=== PATIENT | male | born 1950 | race Caucasian/White ===

== ENCOUNTER 2019-12-30 14:01 | Inpatient (IN) | payer MEDICARE ==
[~2019-12-30] VITALS: Ht 167.6 cm; Wt 75.9 kg
[~2019-12-30 14:01] MED LIST: AMA100C PO; ASPI-1 PO; CARB1TAB23 PO; CLOP75TA35 PO; DULA1.5P SQ; ENTA200T23 PO; FENO145T25 PO; FEXO1TAB8 PO; GABA600T13 PO; GLIM4TAB7 PO; GLUC100017 PO; KRIL500C PO; LEVO50TA8 PO; LOSA1TAB41 PO; METF500T20 PO; RASA1TAB PO; ROPI12TA2 PO; SAW450CA7 PO; UBID30CA11 PO; [UNRECOGNIZED DRUG - OTHER] PO; [UNRECOGNIZED DRUG - OTHER] PO; [UNRECOGNIZED DRUG - OTHER] PO
--- NOTE | 2019-12-30 14:08 | NUR ---
TEMP RECHECK 98.0, O2 SAT 96% WITH O2 AT 2LPM/NC. RR 24/MIN. EKG AT CHAIR SIDE.
[2019-12-30 14:59] LABS: BASOPHILS # (AUTO) 0.1 X10'3 (0-0.2); BASOPHILS % (AUTO) 0.6 % (0-1); EOSINOPHILS # (AUTO) 0.1 X10'3 (0-0.9); EOSINOPHILS % (AUTO) 0.9 % (0-6); HEMATOCRIT 25.5 % (42.0-52.0); HEMOGLOBIN 8.6 g/dl (14.0-17.9); LYMPHOCYTES # (AUTO) 0.8 X10'3 (1.1-4.8); LYMPHOCYTES % (AUTO) 8.5 % (21-51); MEAN CORPUSCULAR HEMOGLOBIN 28.2 PG (27.0-31.0); MEAN CORPUSCULAR HGB CONC 33.8 g/dL (33.0-36.5); MEAN CORPUSCULAR VOLUME 83.3 FL (78-98); MONOCYTES # (AUTO) 0.6 X10'3 (0-0.9); MONOCYTES % (AUTO) 5.7 % (2-12); NEUTROPHILS # (AUTO) 8.1 X10'3 (1.8-7.7); NEUTROPHILS % (AUTO) 84.3 % (42-75); PLATELET COUNT 337 X10'3 (140-440); RED BLOOD COUNT 3.06 X10'6 (4.70-6.10); RED CELL DISTRIBUTION WIDTH 15.1 % (11.5-14.5); WHITE BLOOD COUNT 9.7 X10'3 (4.5-11.0)
[2019-12-30 15:14] LABS: ALBUMIN/GLOBULIN RATIO 0.7 (1.1-1.5); ALKALINE PHOSPHATASE 91 IU/L (46-116); ANION GAP 11 (8-16); ASPARTATE AMINO TRANSFERASE 29 U/L (10-37); BILIRUBIN,TOTAL 0.7 MG/DL (0.1-1.0); BLOOD UREA NITROGEN 30 MG/DL (7-18); BUN/CREATININE RATIO 19.1 (5.4-32.0); CALCIUM 8.9 MG/DL (8.5-10.1); CHLORIDE 104 MMOL/L (99-107); CREATININE 1.57 MG/DL (0.60-1.10); GLUCOSE 223 MG/DL (70-104); POTASSIUM 3.7 MMOL/L (3.5-5.1); SODIUM 139 MMOL/L (135-145); TOTAL CARBON DIOXIDE 23.6 MMOL/L (24-32); TOTAL PROTEIN 7.5 G/DL (6.4-8.2); eGFR 44 ML/MIN
[2019-12-30] MEDS ORDERED: azithromycin/NS 500mg/250ml 250 ML IV ONE (15:15)
[2019-12-30] MEDS ORDERED: normal saline 1000ML IV soln IVB ONE ×2 (15:15→16:30)
[2019-12-30] MEDS ORDERED: levoFLOXACIN-Levaquin 750MG/D5 150 ML IV ONE (15:15)
[2019-12-30 15:32] LABS: ALANINE AMINOTRANSFERASE < 6 U/L (12-78)
--- NOTE | 2019-12-30 17:04 | NUR ---
DAUGHTERS: ALICIA BARRIENTOS [phone], ISABEL NUÑEZ [phone] (CALL FIRST, PERFORMANCE TEST ENGINEER)
[2019-12-30] MEDS ORDERED: FENO145T46 PO (17:25)
[2019-12-30] MEDS ORDERED: METF1000 PO (17:25)
[2019-12-30] MEDS ORDERED: BACL-11 PO (17:25)
[2019-12-30] MEDS ORDERED: DONE10TA7 PO (17:25)
[2019-12-30] MEDS ORDERED: ATOR10TA70 PO (17:25)
[2019-12-30] MEDS ORDERED: ASPI325T88 PO (17:26)
[2019-12-30] MEDS ORDERED: CLOP75TA15 PO (17:26)
[2019-12-30] MEDS ORDERED: DOXY100C2 PO (17:33)
[2019-12-30] MEDS ORDERED: ALBU18HF2 INH (17:33)
--- NOTE | 2019-12-30 17:38 | NUR ---
DAUGHTER ISABEL MAXIME LINE [phone]
--- NOTE | 2019-12-30 18:23 | NUR ---
TAX COMPLIANCE AGENT swab obtained at this time per PA order.
[2019-12-30] MEDS ORDERED: magnesium 2GM in 50ml NS 50 ML IV PRN (19:20)
[2019-12-30] MEDS ORDERED: acetaminophen 325mg tablet PO PRN (19:20)
[2019-12-30] MEDS ORDERED: dextrose ORAL solution 15 GM/59 ML bottle PO PRN ×2 (19:20)
[2019-12-30] MEDS ORDERED: hydrALAZINE 20mg/ml inj. IV PRN (19:20)
[2019-12-30] MEDS ORDERED: potassium CL 10mEq/100ml bag 100 ML IV PRN ×2 (19:20)
[2019-12-30] MEDS ORDERED: mag hydrox/Alum hydrox/simeth 30ml oral suspension PO PRN (19:20)
[2019-12-30] MEDS ORDERED: ondansetron/PF 4mg/2ml inj IV PRN (19:20)
[2019-12-30] MEDS ORDERED: bisacodyl 10mg suppository rectal RC PRN (19:20)
[2019-12-30] MEDS ORDERED: MESSAGE TO PHARMACY PO ONE (19:20)
[2019-12-30] MEDS ORDERED: dextrose 50%-water 50ml dispensing syringe IV PRN ×2 (19:20)
[2019-12-30] MEDS ORDERED: magnesium hydroxide 30ml (MOM) UD suspension PO PRN (19:20)
[2019-12-30] MEDS ORDERED: glucagon, human recombinant 1mg kit SUBCUT PRN (19:20)
[2019-12-30] MEDS ORDERED: HYDROcodone/acetaminophen 5mg/325mg tablet PO PRN (19:20)
[2019-12-30] MEDS ORDERED: magnesium Cl slow-release 64mg tablet PO PRN (19:20)
[2019-12-30] MEDS ORDERED: magnesium 4gm in 100ml NS 100 ML IV PRN (19:20)
[2019-12-30] MEDS ORDERED: potassium Cl 20 mEq SR tablet PO PRN ×2 (19:20)
[2019-12-30] MEDS ORDERED: furosemide 10 MG/1 ML 10ml inj IV ONE (19:30)
[2019-12-30 20:02] LABS: HEMOGLOBIN A1C 8.2 % (4.5-6.2)
[2019-12-30 21:00] VITALS: BP 138/70
[2019-12-30] MEDS: K and/or MAG REPLACEMENT MC SCH (21:00)
[2019-12-30] MEDS ORDERED: ROPINIROLE HCL 12 MG PO SCH (21:00)
[2019-12-30] MEDS ORDERED: donepezil 5mg tablet PO SCH (21:00)
[2019-12-30] MEDS ORDERED: insulin glargine (Lantus) pen - multi-dose SQ SCH (21:00)
[2019-12-30] MEDS ORDERED: baclofen 10mg tablet PO SCH (21:00)
[2019-12-30] MEDS ORDERED: gabapentin 300mg capsule PO SCH (21:00)
--- NOTE | 2019-12-30 21:00 | NUR ---
PT ARRIVED FROM ER. RECEIVED REPORT FROM MARGIE PATRICIA PRIOR TO PT'S ARRIVAL.
[2019-12-30] MEDS: normal saline 1000ml 1,000 ML IV SCH (21:30)
[2019-12-30] MEDS: carbidoba-levodopa 25-100mg tablet PO SCH (21:40)
[2019-12-30] MEDS: docusate sod 100mg capsule PO SCH (21:40)
[2019-12-30] MEDS: amantadine 100 MG capsule PO SCH (21:40)
--- NOTE | 2019-12-30 22:30 | NUR ---
PT BECOMES EXTREMELY SOB AND WHEEZY. O2 DESATS TO 84% WITH 5L OXYGEN. RR32. RT WAS CALLED BUT TX NOT NEEDED.
[2019-12-31 02:39] VITALS: BP 156/81
--- NOTE | 2019-12-31 04:48 | NUR ---
[address]O 69, HERE FOR PNEUMONIA R/O COVID. PT REFUSED 2100 DOSE BACLOFEN BUT WANTS TO TAKE IT NOW. CAN HE TAKE IT? THANK YOU. FROM #[id number] YA
[2019-12-31] MEDS ORDERED: baclofen 10mg tablet PO ONE (04:50)
[2019-12-31 05:56] LABS: BASOPHILS # (AUTO) 0.1 X10'3 (0-0.2); BASOPHILS % (AUTO) 1.1 % (0-1); EOSINOPHILS # (AUTO) 0.1 X10'3 (0-0.9); EOSINOPHILS % (AUTO) 0.8 % (0-6); HEMATOCRIT 26.6 % (42.0-52.0); LYMPHOCYTES # (AUTO) 0.9 X10'3 (1.1-4.8); LYMPHOCYTES % (AUTO) 10.6 % (21-51); MEAN CORPUSCULAR HEMOGLOBIN 28.2 PG (27.0-31.0); MEAN CORPUSCULAR HGB CONC 33.8 g/dL (33.0-36.5); MEAN CORPUSCULAR VOLUME 83.6 FL (78-98); MONOCYTES # (AUTO) 0.5 X10'3 (0-0.9); NEUTROPHILS # (AUTO) 7.3 X10'3 (1.8-7.7); NEUTROPHILS % (AUTO) 81.5 % (42-75); PLATELET COUNT 325 X10'3 (140-440); RED BLOOD COUNT 3.18 X10'6 (4.70-6.10); RED CELL DISTRIBUTION WIDTH 15.1 % (11.5-14.5); WHITE BLOOD COUNT 8.9 X10'3 (4.5-11.0)
[2019-12-31 06:07] VITALS: BP 150/79
--- NOTE | 2019-12-31 06:35 | NUR ---
Problems reprioritized. Patient report given, questions answered & plan of care reviewed with MARGIE VALLE.
--- NOTE | 2019-12-31 06:39 | NUR ---
Patient in room [facility]TH[facility] 4006. I have received report from MARGIE PANDYA and had the opportunity to ask questions and assume patient care.
--- NOTE | 2019-12-31 06:41 | NUR ---
Problems reprioritized. Patient report given, questions answered & plan of care reviewed with MARGIE PERALTA.
[2019-12-31 07:00] VITALS: BP 127/71
[2019-12-31] MEDS ORDERED: levoTHYROXINE 25mcg tablet PO SCH (07:00)
--- NOTE | 2019-12-31 07:00 | NUR ---
WENT IN TO PROVIDE AM MEDS AND PT HAD REMOVED TELE MONITOR, NC, AND IV LINE. PT WAS FULLY DRESSED AND WANTING TO LEAVE. I TALKED TO PT AND HE AGREED TO TAKE AM MEDS AND EAT BREAKFAST AND WILL WAIT FOR IV ABX TO FINISH BEFORE HE LEAVES. VS STABLE, WILL CONTINUE TO MONITOR.
[2019-12-31 07:30] LABS: ALANINE AMINOTRANSFERASE 7 U/L (12-78); ALBUMIN 2.8 G/DL (3.4-5.0); ALBUMIN/GLOBULIN RATIO 0.6 (1.1-1.5); ALKALINE PHOSPHATASE 76 IU/L (46-116); ANION GAP 9 (8-16); ASPARTATE AMINO TRANSFERASE 24 U/L (10-37); BILIRUBIN,TOTAL 0.6 MG/DL (0.1-1.0); BLOOD UREA NITROGEN 25 MG/DL (7-18); BUN/CREATININE RATIO 19.2 (5.4-32.0); CALCIUM 8.9 MG/DL (8.5-10.1); CHLORIDE 105 MMOL/L (99-107); CHOL/HDL RATIO 2.8 (0.00-4.99); CHOLESTEROL 99 MG/DL (0-200); GLUCOSE 177 MG/DL (70-104); HDL CHOLESTEROL 35 MG/DL (35-60); LDL CHOLESTEROL 55 MG/DL (50-100); MAGNESIUM 1.5 MG/DL (1.5-2.4); PHOSPHORUS 3.1 MG/DL (2.3-4.5); POTASSIUM 3.4 MMOL/L (3.5-5.1); SODIUM 140 MMOL/L (135-145); TOTAL CARBON DIOXIDE 26.5 MMOL/L (24-32); TOTAL PROTEIN 7.6 G/DL (6.4-8.2); TRIGLYCERIDES 57 MG/DL (20-135); eGFR 55 ML/MIN
[2019-12-31] MEDS: docusate sod 100mg capsule PO SCH (08:00)
[2019-12-31] MEDS ORDERED: HYDROchlorothiazide 12.5mg capsule PO SCH (08:00)
[2019-12-31] MEDS ORDERED: losartan 50mg tablet PO SCH (08:00)
[2019-12-31] MEDS ORDERED: atorvastatin 10mg tablet PO SCH (08:00)
[2019-12-31] MEDS ORDERED: clopidogrel 75mg tablet PO SCH (08:00)
[2019-12-31] MEDS ORDERED: CefTRIAXone/D5W-Rocephin 1gm 50 ML IV SCH (08:00)
[2019-12-31] MEDS ORDERED: enoxaparin 30mg/0.3ml syringe SQ SCH (08:00)
[2019-12-31] MEDS ORDERED: azithromycin/NS 500mg/250ml 250 ML IV SCH (08:00)
[2019-12-31] MEDS ORDERED: aspirin 325mg tablet, delayed-release (Ecotrin) PO SCH (08:00)
[2019-12-31] MEDS: K and/or MAG REPLACEMENT MC SCH (08:00)
[2019-12-31] MEDS: carbidoba-levodopa 25-100mg tablet PO SCH ×2 (09:52→14:04)
[2019-12-31] MEDS: amantadine 100 MG capsule PO SCH (09:53)
[2019-12-31] MEDS: insulin Lispro (HumaLOG) vial - multi-dose SQ SCH ×2 (10:06→14:02)
[2019-12-31] MEDS ORDERED: HYDROchlorothiazide tablet PO (12:14)
--- NOTE | 2019-12-31 12:31 | NUR ---
DM Consult: A1C 8.2. Pt admit w/ acute respiratory distress, PNA, and possible Covid-19 pending results. Hx CAD, DM, HTN. Pt is threatening to leave AMA and per EMR "He hates hospitals he hates doctors and nobody can hold him down this is against his rights." Pt is not currently appropriate for DM ed at this time. Written DM ed w/ RD contact information placed in pt chart. Addendum: 12/31/19 at [address] Amended: Links added.
[2019-12-31] MEDS: normal saline 1000ml 1,000 ML IV SCH ×2 (13:00→15:20)
[2019-12-31] MEDS ORDERED: LEVO500T2 PO (13:48)
--- NOTE | 2019-12-31 15:19 | NUR ---
Page Sent PAGER ID: [phone] MESSAGE: [id number] 5199-RE: PALMIRA AZEVEDO [id number]...NEGATIVE COVID RESULTS...PT WANTS TO BE DISCHARGED.
--- NOTE | 2019-12-31 16:28 | NUR ---
DC INSTRUCTIONS GIVEN TO PT, PT UNDERSTANDS. RX CALLED IN TO [facility]. IV DC'D, NO COMPLICATIONS. PT WHEELED DOWN TO DAUGHTER IN STABLE CONDITION.
[2019-12-31] MEDS ORDERED: lactobacillus rhamnosus 10,000 MMU CELLS/CAPSULE PO SCH (20:00)
== END 2019-12-31 16:00 | disposition home or self-care (01) | DRG 190 ==
LOC: ER 14:01 → ED HOLD 19:20 → CMPBEDREQ 20:49 → ORTHO 4S 20:50
PROVIDERS: ADMIT Family Medicine; ATTEND Internal Medicine
DX: J44.0 Chronic obstructive pulmonary disease with (acute) lower respiratory infection (principal); J18.9 Pneumonia, unspecified organism; Z88.0 Allergy status to penicillin; E11.9 Type 2 diabetes mellitus without complications; E78.5 Hyperlipidemia, unspecified; E78.00 Pure hypercholesterolemia, unspecified; I25.10 Atherosclerotic heart disease of native coronary artery without angina pectoris; F41.9 Anxiety disorder, unspecified; I10 Essential (primary) hypertension; Z87.891 Personal history of nicotine dependence; R09.02 Hypoxemia; Z03.818 Encounter for observation for suspected exposure to other biological agents ruled out
CPT/HCPCS: 36415; 71045; 80053; 80061; 82948; 83036; 83605; 83735; 83880; 84100; 84145; 85025; 87040; 87081; 87635; 93005; 94760; 96365; 99285; G0378; J0456; J0696; J1815; J1940; J1956; J7030